=== PATIENT | female | born 1995 | race Caucasian/White ===

== ENCOUNTER → 2019-08-06 | Outpatient (CLI) | payer MEDICAID, SELFPAY ==
[2019-08-06 13:40] VITALS: BMI 20.6
[2019-08-06 18:21] LABS: Amphetamine Urine VISTA NEGATIVE (<1000 ng/mL); Barbiturate Urine VISTA NEGATIVE (< 200 ng/mL); Benzodiazepine Urine VISTA NEGATIVE (< 200 ng/mL); Cocaine Urine VISTA NEGATIVE (< 300 ng/mL); Ecstacy Urine VISTA NEGATIVE (< 500 ng/mL); Methadone Urine VISTA NEGATIVE (< 300 ng/mL); PCP Urine VISTA NEGATIVE (< 25 ng/mL); THC Urine VISTA POSITIVE (< 50 ng/mL); Vista UDS pH Range 6
[2019-08-06 20:36] LABS: Chlamydia Trachomatis by PCR Negative (Negative); Neisserai gonorrhoeae by PCR Negative (Negative); Probe Check PASS; Sample Adequacy Control PASS; Specimen Processing Control PASS
[2019-08-09 09:37] LABS: HPV Reflexed? NOT INDICATED
== END | disposition home or self-care (01) ==
PROVIDERS: PCP Family Medicine; Referring Provider Obstetrics & Gynecology; Visit Provider Obstetrics & Gynecology
DX: Z34.90 Encounter for supervision of normal pregnancy, unspecified, unspecified trimester (principal); Z12.4 Encounter for screening for malignant neoplasm of cervix
CPT/HCPCS: 80307; 87086; 87088; 87491; 87591; 88175; G0145

== ENCOUNTER → 2019-09-16 09:13 | Outpatient (CLI) | payer MEDICAID, SELFPAY ==
[2019-08-06 13:40] VITALS: BMI 20.6
[2019-09-16 09:44] LABS: Absolute Lymphocyte Count 1.86 X10^3/uL (0.83-4.51); Absolute Neutrophil Count 3.2 X10^3/uL (2.0-7.7); Basophil# 0.02 X10^3/uL; Basophil% 0.3 % (0-1); Eosinophil# 0.12 X10^3/uL; Eosinophils% 2.1 % (0-5); Hematocrit 38.4 % (37-47); Hemoglobin 12.9 g/dL (12.0-15.0); Lymphocyte # 1.86 X10^3/ul (4.0); Lymphocyte % 32.1 % (19-41); Mean Corp Hgb Conc 33.6 g/dL (32-36); Mean Corpuscular Hgb 30.2 pg (27.0-32.0); Mean Corpuscular Volume 89.9 fL (81-99); Monocyte% 10.4 % (0-10); NRBC Flagged by Analyzer 0 % (0-5); Neutrophil # 3.18 X10^3/uL (2.7-7.7); Neutrophil % 54.9 % (47-70); Platelet Count 296 K/mm3 (150-450); RBC Distribution Width CV 12.7 % (11.6-14.6); RBC Distribution Width SD 42.1 fl (35.1-43.9); Red Blood Count 4.27 M/mm3 (4.2-5.4); White Blood Count 5.8 K/mm3 (4.4-11.0)
[2019-09-16 10:28] LABS: NATERA MAILED SPECIMEN
[2019-09-16 11:40] LABS: HIV - WCH Non-Reactive (Nonreactive); Hepatitis B Surface Antigen Non-Reactive (Nonreactive); Hepatitis C Antibody Non-Reactive (Nonreactive); Rubella IgG 248.2 IU/mL
[2019-09-19 00:55] LABS: Rapid Plasmin Reagin (RPR) NONREACTIVE (NONREACTIVE)
== END ==
PROVIDERS: PCP Family Medicine; Referring Provider Obstetrics & Gynecology; Visit Provider Obstetrics & Gynecology
DX: Z34.90 Encounter for supervision of normal pregnancy, unspecified, unspecified trimester (principal)
CPT/HCPCS: 36415; 85025; 86592; 86703; 86762; 86803; 86850; 86900; 86901; 87340

== ENCOUNTER → 2019-10-16 09:40 | Outpatient (CLI) | payer MEDICAID, SELFPAY ==
[2019-10-16 09:11] VITALS: BMI 20.6
[2019-10-16 16:18] LABS: Amphetamine Urine VISTA NEGATIVE (<1000 ng/mL); Barbiturate Urine VISTA NEGATIVE (< 200 ng/mL); Benzodiazepine Urine VISTA NEGATIVE (< 200 ng/mL); Cocaine Urine VISTA NEGATIVE (< 300 ng/mL); Ecstacy Urine VISTA NEGATIVE (< 500 ng/mL); Methadone Urine VISTA NEGATIVE (< 300 ng/mL); PCP Urine VISTA NEGATIVE (< 25 ng/mL); THC Urine VISTA POSITIVE (< 50 ng/mL); Vista UDS pH Range 8
== END ==
PROVIDERS: PCP Family Medicine; Referring Provider Obstetrics & Gynecology; Visit Provider Obstetrics & Gynecology
DX: Z36.9 Encounter for antenatal screening, unspecified (principal); F12.90 Cannabis use, unspecified, uncomplicated
CPT/HCPCS: 36415; 80307

== ENCOUNTER → 2019-12-09 08:37 | Outpatient (CLI) | payer MEDICAID, SELFPAY ==
[2019-12-09 08:07] VITALS: BMI 20.6
[2019-12-09 09:11] LABS: Absolute Lymphocyte Count 2.01 X10^3/uL (0.83-4.51); Absolute Neutrophil Count 4.9 X10^3/uL (2.0-7.7); Basophil# 0.02 X10^3/uL; Basophil% 0.3 % (0-1); Eosinophil# 0.16 X10^3/uL; Hematocrit 35.8 % (37-47); Hemoglobin 12.1 g/dL (12.0-15.0); Lymphocyte # 2.01 X10^3/ul (4.0); Lymphocyte % 25.2 % (19-41); Mean Corp Hgb Conc 33.8 g/dL (32-36); Mean Corpuscular Hgb 31.4 pg (27.0-32.0); Mean Platelet Vol. 10.1 fl (6.2-12.0); Monocyte# 0.82 X10^3/uL; Monocyte% 10.3 % (0-10); NRBC Flagged by Analyzer 0 % (0-5); Neutrophil # 4.93 X10^3/uL (2.7-7.7); Neutrophil % 61.8 % (47-70); Platelet Count 257 K/mm3 (150-450); RBC Distribution Width CV 13.2 % (11.6-14.6); RBC Distribution Width SD 44.2 fl (35.1-43.9); Red Blood Count 3.85 M/mm3 (4.2-5.4)
[2019-12-09 09:17] LABS: Glucose Challenge Gest 1H 50g 83 mg/dL (70-140)
== END ==
PROVIDERS: PCP Family Medicine; Referring Provider Obstetrics & Gynecology; Visit Provider Obstetrics & Gynecology
DX: Z34.90 Encounter for supervision of normal pregnancy, unspecified, unspecified trimester (principal)
CPT/HCPCS: 36415; 82950; 85025

== ENCOUNTER → 2020-02-17 | Outpatient (CLI) | payer MEDICAID, SELFPAY ==
[2020-02-17 10:58] VITALS: BMI 24.5
[2020-02-17 16:15] LABS: Amphetamine Urine VISTA NEGATIVE (<1000 ng/mL); Barbiturate Urine VISTA NEGATIVE (< 200 ng/mL); Benzodiazepine Urine VISTA NEGATIVE (< 200 ng/mL); Cocaine Urine VISTA NEGATIVE (< 300 ng/mL); Ecstacy Urine VISTA NEGATIVE (< 500 ng/mL); Methadone Urine VISTA NEGATIVE (< 300 ng/mL); PCP Urine VISTA NEGATIVE (< 25 ng/mL); THC Urine VISTA POSITIVE (< 50 ng/mL); Vista UDS pH Range 7
== END | disposition home or self-care (01) ==
LOC: LABSPEC 14:26
PROVIDERS: PCP Family Medicine; Referring Provider Obstetrics & Gynecology; Visit Provider Obstetrics & Gynecology
DX: Z34.90 Encounter for supervision of normal pregnancy, unspecified, unspecified trimester (principal)
CPT/HCPCS: 80307; 87077; 87081; 87186

== ENCOUNTER → 2020-03-02 10:16 | Outpatient (CLI) | payer MEDICAID, SELFPAY ==
[2020-01-31 11:35] VITALS: BMI 24.0
[2020-02-28 14:33] VITALS: BMI 25.0
== END ==
PROVIDERS: PCP Family Medicine; Referring Provider Obstetrics & Gynecology; Visit Provider Obstetrics & Gynecology
DX: Z20.828 Contact with and (suspected) exposure to other viral communicable diseases (principal)
CPT/HCPCS: 87635; C9803; U0003

== ENCOUNTER 2020-03-03 12:25 | Outpatient (CLI) | payer MEDICAID, SELFPAY ==
[2020-02-28 14:33] VITALS: BMI 25.0
[2020-03-03 12:43] VITALS: BMI 25.0
--- NOTE | 2020-03-04 07:55 | OB.TRI.PN_ITS ---
Progress Notes Date of Service: 03/03/20 Progress Note: Patient presents for triage evaluation secondary to actions. Cervix found to be 1 cm and posterior. Contractions irregular. Patient not uncomfortable. FHT: Moderate variability reactive no decelerations category I tracing [place]: Every 10 minutes contractions Assessment and plan: Reactive NST, reassuring maternal and status patient discharged to home to follow-up at next scheduled appointment. See problem list details for additional plan information. - Problem List (1) False labor Status: Acute Multi Select Codes - Urinary/Genital Urinary/Genital CPT Codes: 65007-00 non-stress test Interp
== END 2020-03-03 13:25 | disposition home or self-care (01) ==
PROVIDERS: PCP Family Medicine; Referring Provider Obstetrics & Gynecology; Visit Provider Obstetrics & Gynecology
DX: O47.9 False labor, unspecified (principal); Z3A.00 Weeks of gestation of pregnancy not specified
CPT/HCPCS: 59025; 59050; 99218; G0378

== ENCOUNTER 2020-03-05 01:18 | Inpatient (IN) | payer MEDICAID, SELFPAY ==
[2020-03-05] VITALS (62 sets, daily range): BP systolic 83–148; BP diastolic 42–96; PULSE 80–137; RESP 16; TEMP 36.7–39.3; O2SAT 94–100; BMI 25.2
[2020-03-05 01:52] LABS: Absolute Lymphocyte Count 2.14 X10^3/uL (0.83-4.51); Absolute Neutrophil Count 10.1 X10^3/uL (2.0-7.7); Basophil# 0.05 X10^3/uL; Basophil% 0.4 % (0-1); Eosinophil# 0.08 X10^3/uL; Eosinophils% 0.6 % (0-5); Hematocrit 37.8 % (37-47); Hemoglobin 12.7 g/dL (12.0-15.0); Lymphocyte # 2.14 X10^3/ul (4.0); Lymphocyte % 15.7 % (19-41); Mean Corp Hgb Conc 33.6 g/dL (32-36); Mean Corpuscular Hgb 31.1 pg (27.0-32.0); Mean Corpuscular Volume 92.6 fL (81-99); Mean Platelet Vol. 10.5 fl (6.2-12.0); Monocyte# 1.15 X10^3/uL; Monocyte% 8.4 % (0-10); NRBC Flagged by Analyzer 0 % (0-5); Neutrophil # 10.13 X10^3/uL (2.7-7.7); Neutrophil % 74.4 % (47-70); Platelet Count 235 K/mm3 (150-450); RBC Distribution Width CV 13.1 % (11.6-14.6); RBC Distribution Width SD 44.1 fl (35.1-43.9); Red Blood Count 4.08 M/mm3 (4.2-5.4); White Blood Count 13.6 K/mm3 (4.4-11.0)
[2020-03-05] MEDS: Lactated Ringers 500 ML 999 ML IV ×3 (01:57→09:30)
[2020-03-05] MEDS: fentaNYL 100 MCG/2 ML Ampul IV (03:20)
[2020-03-05] MEDS: Lactated Ringers 1,000 ML 50 ML IV (03:29)
[2020-03-05 03:31] LABS: Amphetamine Urine VISTA NEGATIVE (<1000 ng/mL); Barbiturate Urine VISTA NEGATIVE (< 200 ng/mL); Benzodiazepine Urine VISTA NEGATIVE (< 200 ng/mL); Cocaine Urine VISTA NEGATIVE (< 300 ng/mL); Ecstacy Urine VISTA NEGATIVE (< 500 ng/mL); Methadone Urine VISTA NEGATIVE (< 300 ng/mL); PCP Urine VISTA NEGATIVE (< 25 ng/mL); THC Urine VISTA POSITIVE (< 50 ng/mL); Vista UDS pH Range 6
[2020-03-05] MEDS: fentaNYL-bupivacaine (epidural) 100 ML BAG EPIDURAL ×2 (06:14→11:32)
--- NOTE | 2020-03-05 07:11 | HP.PCM_ITS ---
- Problem List (1) Active labor Status: Acute (2) 35 weeks gestation of Status: Acute Comment: covid testing negative (3) Family history of cleft lip and palate Status: Acute Comment: FOB dtr with Cantrell Wells Syndrome. refer to [facility] for consult. (4) Influenza vaccine administered Status: Acute Comment: 01/17/2020 (5) Marijuana use Status: Acute Comment: encouraged cessation, plan random tox screen. 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 Nicolle Torres MD) Smoking Status: Current every day smoker alcohol intake: never substance use type: does not use, marijuana caffeine: Yes what type of physical activity do you participate in: walking seatbelt use: always do you feel safe at home: Yes additional social history: [id number]-[id number]-ENQ Patient is unemployed Pregancy History 2 Elective abortions Hx Para 0 Spontaneous abortions 1 Hx # Term Pregnancies Ectopic pregnancies Hx # Pregnancies Multiple births # of living children HPI 38 WK OB: Details: IRAM BETANCOURT is a 24 year old who presents for routine OB visit. OB Visit FELECIA Calculator Estimated Delivery Date Method Current WG Current Estimate 03/08/20 LMP (Certain) 38w 5d Expected Delivery Route/Plan Labor Preferences- CB/BF classes: declined labor support person: Walker labor intervention preferences: none pain management options preferred: epidural cut cord/dad catch: yes : yes PP control planned: patch start after 6 weeks discussed possible routes of delivery and associated risks: discussed possible delivery modalities and possible indications for each including R/B/A of , VAVD, and CS. questions answered. special requests: Specific Issue/Plans flu vaccine: given 01/16 tdap vaccine: given 12/08 rhogam: na LARC form signed: declined movement and labor precautions reviewed. Problem list reviewed and updated with the most current plan of care details and appropriate orders placed. Relevant counseling for the gestational age provided. Continue routine care and follow up unless otherwise noted in visit notes/problem list details Initial Weight: 133 lb Date EGA Weight BP Urine Prot Glucose FHR FuHt Pres Dilation Effaced St Visit Note 09/16/19 15w 1d 133 lb 6 oz (+6 oz) 110/68 Negative Negative 147 MH-nausea improved. No VB. PNL and NIPT today. 10/16/19 19w 3d 139 lb (+6 lb) 100/60 Negative Negative 145 SM- no vb lof cramping afp today, us tomorrow 11/13/19 23w 3d 139 lb (+6 lb) 98/54 Negative Negative 140 24 SM- no vb some cramping, gct given for next time. encouraged to have patient 12/09/19 27w 1d 143 lb (+10 lb) 118/62 Negative Negative 140 27 SM- no vb lof good fm no regular ctx. discussed work restrictions. cbc tdap gct today 01/02/20 30w 4d 102/62 140 30 SM- syncopal episode here- likely bs related, feeling much better now after fluids and eating. no vb lof good fm nor egular ctx 01/17/20 32w 5d 147 lb 6 oz (+14 lb 6 oz) 102/64 Negative Negative 150 32 Cephalic Sm- no vb lof good fm no regular ctx flu vaccine today larc signed discussed delivery preferences 01/31/20 34w 5d 149 lb (+16 lb) 104/60 Negative Negative 150 34 Cephalic SM- no vb lof good fm no regular ctx 02/17/20 37w 1d 152 lb (+19 lb) 116/68 145 36 Cephalic 0 40 -3 GP - no LOF, VB, DFM, ctx . GBS done today. Discussed COVID testing - scheduled for 02/27. 02/28/20 38w 5d 155 lb (+22 lb) 114/60 Negative Negative 125 38 Cephalic 1 50 -2 SM- no vb lof good fm nor egular ctx ACOG First Trimester First Trimester: Discussed Diagnostics Diagnostics Diagnostics Blood Type O POSITIVE 09/16/19 Antibody Screen NEGATIVE 09/16/19 Glucose 1 Hr 50 gm 83 mg/dL (70-140) 12/09/19 HIV 1&2 Antibody Non-Reactive (Nonreactive) 09/16/19 Rubella IgG Antibody 248.2 IU/mL 09/16/19 Hgb 12.1 g/dL (12.0-15.0) 12/09/19 Hct 35.8 % (37-47) L 12/09/19 RPR NONREACTIVE (NONREACTIVE) 09/16/19 Details: HIV: Urine Culture: Sequential Screen: NIPT Screen: ROS ROS Const Reports system reviewed and no additional complaints, except as documented Card Reports system reviewed and no additional complaints, except as documented Resp Reports system reviewed and no additional complaints, except as documented GI Reports system reviewed and no additional complaints, except as documented, Reports nausea Reports system reviewed and no additional complaints, except as documented Musc Reports system reviewed and no additional complaints, except as documented all other systems reviewed and negative Exam Exam Const General: cooperative, healthy appearing, comfortable [facility] Head: normal to inspection Nose: external nose normal Face and sinus: normal facial exam Neck Neck: normal visual inspection, full ROM, no lymphadenopathy Thyroid: thyroid normal Chest Chest palpation & inspection: normal inspection of the chest Resp Effort & Inspection: normal respiratory effort GI Inspection: normal to inspection Palpation: soft, other (gravid uterus) Other: infant vertex and appropriate size for gestational age Other: Cervical Exam: 70/-2 Extrem General: pedal edema Results POC Urinalysis 2 Dip (Clinic) Office Urine Glucose Negative Last Edit by Teresa Donovan on 02/28/20 14:40 Office Urine Protein Negative Last Edit by Teresa Donovan on 02/28/20 14:40 Assessment & Plan Problems 1. Z34.90 nipt- low risk and carrier- neg , afp negative, anatomy normal 2. Supervision of normal , antepartum Z34.90 PRR FELECIA 03/08/20 boy [place] fhchristian Cardoso (Jojo) 3. Family history of cleft lip and palate Z82.79 FOB dtr with Cantrell Wells Syndrome. refer to [facility] for consult. 4. Marijuana use F12.90 encouraged cessation, plan random tox screen. + 10/15- repeat in 6-8 weeks 5. Influenza vaccine administered Z23 01/17/2020 6. 35 weeks gestation of Z3A.35 covid testing ordered 02/05/20c (scheduled for 02/28/20 at 9:40)Pt no showed 02/27 appt. resched. 03/02 @9:05 7. Positive GBS test B95.1 plan PCN in labor UPDATE- I have seen the patient and performed any clinically relevant updates to the history and physical exam. Lotus Hogan MD
[2020-03-05] MEDS: Mag Hydrox/Al Hydrox/Simeth 30 ML UDC PO (07:32)
[2020-03-05] MEDS: Lactated Ringers 1,000 ML 200 ML IV (08:38)
[2020-03-05] MEDS: Ondansetron 4 MG/2 ML Vial IV (12:28)
[2020-03-05] MEDS: Oxytocin 30 units/NS 500 ml 30 UNITS/500 ML IV.SOLN 334 UNITS IV (13:34)
--- NOTE | 2020-03-05 16:04 | NURSING ---
Leanne Brito RN and I wasted the patient's epidural bags. We accidently wasted under an ampule of Fentanyl instead of an epidural bag in the amount of 2mcg. It was meant to be 2ml of the Fentanyl epidural bag. Deepa in pharmacy was notified.
--- NOTE | 2020-03-05 19:30 | PCM.OPRPT ---
Problem List (1) Active labor Status: Acute (2) 35 weeks gestation of Status: Acute Comment: covid testing negative (3) Family history of cleft lip and palate Status: Acute Comment: FOB dtr with Cantrell Wells Syndrome. refer to [facility] for consult. (4) Influenza vaccine administered Status: Acute Comment: 01/17/2020 (5) Marijuana use Status: Acute Comment: encouraged cessation, plan random tox screen. + 7/- repeat in 6-8 weeks (6) Positive GBS test Status: Acute Comment: plan PCN in labor (7) Status: Acute Qualifiers: Comment: nipt- low risk and carrier- neg , afp negative, anatomy normal (8) Supervision of normal , antepartum Status: Acute Comment: PRR FELECIA 03/08/20 ying Cardoso (Jojo) Vaginal Delivery Maternal Presentation: Active Labor 24 year-old G2, P0 at 39 weeks gestation admitted in active labor. Patient made cervical change to complete dilation without augmentation. Method of Induction: Amniotomy Amniotic Membrane Rupture Type: Artificial Rupture of Membrane time: 744 Amniotic Fluid Description: Lightly stained meconium Final FELECIA: 03/08/20 Gestational age: 39 Weeks and 4 Days Date of Procedure: 03/05/20 Pre-Operative Diagnosis: Term , active labor Post-Operative Diagnosis: Same Surgery/ Procedure Performed: Spontaneous Vaginal Delivery Type of Anesthesia: Epidural Description of Procedure: Patient began pushing and delivered the head in the LINDA presentation. The head was delivered atraumatically and no nuchal cord was noted. The anterior and posterior shoulders delivered without complication followed by the rest of the infant and the infant was placed on the maternal abdomen. Delayed cord clamping was employed for approximately 60 seconds. Cord was clamped and cut and gentle traction was applied to the cord and the placenta delivered spontaneously immediately following it was noted to be intact with three-vessel cord. The perineum and vagina were inspected and a first-degree perineal laceration was noted and repaired in the standard fashion using 3-0 Vicryl repeat suture. EBL was 150 cc. Patient and tolerated delivery well. Presentation: Vertex, LINDA Placental Delivery Description: Spontaneous Placenta Disposition: [facility] Cord Vessel Description: 3 Vessels Cord Entanglement: None Estimated Blood Loss: 150 cc A gender: Male (1 minute): 8 (5 minute): 9 Episiotomy Description: None Laceration: Midline, Perineal Extension/lac, 1st degree Medications given after delivery: IV Pitocin Complications: None Multi Select Codes - Urinary/Genital Urinary/Genital CPT Codes: 85128 Vaginal Delivery+ PP Care([facility])
--- NOTE | 2020-03-05 20:41 | NURSING ---
Infants temperature was taken at 2014, this nurse has trouble obtaining an axillary temperature and switched thermometers and it eventually read 96.6. This nurse then obtained a rectal thermometer which then read 95.3, was imediately placed skin to skin with mother and put under warm blankets, room temperature was turned up. This nurse will recheck temperature in 30 mins from original temp taken, All other vitals within normal limits and infant was not in any distress, Nursery nurse was notified
[2020-03-06] VITALS: BP 137/74; PULSE 100; RESP 16; TEMP 37.6
[2020-03-06 04:00] VITALS: BP 95/51; PULSE 84; RESP 16; TEMP 37
--- NOTE | 2020-03-06 05:58 | DCINST_ITS ---
Discharge Diet: No Restrictions Discharge Activity: Return to Normal Activity, May not drive while taking narcotic pain medications., May Shower May resume sexual activity in: 4-6 weeks Additional Activity Instructions:: Nothing in the vagina for 4-6 weeks. You may return to work/school in 6 weeks. Call your doctor if your incision/area has: Continuous Slow Oozing, Sudden Increased Bleeding, Increased Pain/ Swelling, Increased Redness, Foul Smelling Discharge Additional Instructions: If you experience any of the following, contact your healthcare provider. * Bleeding that soaks a pad every hour for 2 hours * Fever 100.4 or higher * Unrelieved incision or abdominal pain * Swelling, redness, discharge or bleeding from your incision or episiotomy site * Your incision begins to separate * Problems urinating (including inability to urinate or burning while urinating). * Visual changes * Severe headache * Flu-like symptoms * Pain or redness in one of both of your breasts * Pain, warmth, tenderness or swelling in your legs, especially the calf area * Frequent nausea and vomiting * Symptoms of depression or anxiety If you experience any of the following, call 911 or go to the nearest Emergency Room. * Chest pain * Problems breathing * Seizure activity * Partial or complete paralysis of a body part, slurred speech, weakness or drooping of the face, or a sudden inability to walk or hold your balance Allergies/Adverse Reactions: Allergies No Known Allergies Allergy (Verified 02/28/20 14:34) Medications to take at Discharge Pnv No.95/Ferrous Fum/Folic AC [ Formula Tablet] 1 tab PO DAILY 03/05/20 When: Call to make an appointment with your doctor in 6 weeks. If you had elevated Blood Pressure or 4th degree laceration you will need to be seen in 2 weeks. Primary Care Physician: Carrington Brito MD [Primary Care Provider] - Test Results: Test results from this visit will be discussed in further detail at your follow- up appointment, if applicable.
--- NOTE | 2020-03-06 06:00 | PN.OBGYN_ITS ---
Patient Problems: Active and Suspected Problems (Last Reviewed 02/28/20 @ 14:34 by Teresa Donovan) Active labor (Acute) Positive GBS test (Acute) plan PCN in labor 35 weeks gestation of (Acute) covid testing negative Influenza vaccine administered (Acute) 01/17/2020 Marijuana use (Acute) encouraged cessation, plan random tox screen. + 7/- repeat in 6-8 weeks Family history of cleft lip and palate (Acute) FOB dtr with Cantrell Wells Syndrome. refer to [facility] for consult. Supervision of normal , antepartum (Acute) PRR FELECIA 03/08/20 boy [place] fhusband Walker (Jojo) (Acute) nipt- low risk and carrier- neg , afp negative, anatomy normal Subjective: Patient doing well without complaints. Tolerating PO. Ambulating and voiding without difficulty. Breast feeding well. Denies chest pain, shortness of breath, calf pain/swelling, fevers, chills, lightheadedness. - Physical Exam Vitals/I&O's: Vital Signs Temp Pulse Resp BP Pulse Ox 98.6 F 84 16 95/51 L 100 03/06/20 04:00 03/06/20 04:00 03/06/20 04:00 03/06/20 04:00 03/05/20 13:47 Oxygen Delivery Method Room Air Weight: 156 lb Body Mass Index (BMI) 25.2 Intake and Output for Last 24 Hours 03/04/20 03/05/20 03/06/20 23:59 23:59 23:59 Intake Total 4069.16 / 4069.16 Output Total 350 / 350 Balance 3719.16 / 3719.16 General: Alert, Oriented x3, Cooperative, No apparent distress, Well developed, Well nourished HEENT: Atraumatic, PERRLA, EOMI, Normocephalic Neck: Supple, No JVD Lungs: Normal air movement Cardiovascular: Regular rate Abdomen: Soft, Non Tender, Non-Distended, - - fundus firm Extremities: No edema, No Calf Tenderness Neurological: Cranial nerves II-XII grossly intact, Neuro grossly intact Psych/Mental Status: Normal Affect, Appropriate Current Medications Acetaminophen (Acetaminophen 500 Mg Tablet) 1,000 mg PO Q8H PRN PRN PRN Reason: Pain Score 1-3 Bisacodyl (Bisacodyl 10 Mg Suppository) 10 mg RECTAL UD PRN PRN Reason: If no BM Dibucaine (Dibucaine 30 Gm Tube) 1 applic TOPICAL TID PRN PRN; Protocol PRN Reason: Discomfort Hydrocortisone (Hydrocortisone 2.5% Crm) 1 applic TOPICAL TID PRN PRN; Protocol PRN Reason: Discomfort Ibuprofen (Ibuprofen 600 Mg Tablet) 600 mg PO Q6H PRN PRN PRN Reason: Pain Score 1-3 Methylergonovine Maleate (Methylergonovine 0.2 Mg/Ml Ampul) 0.2 mg IM X1 PRN PRN Reason: Excess bleeding/uterine atony Ondansetron HCl (Ondansetron 4 Mg/2 Ml Vial) 4 mg IV Q4H PRN PRN PRN Reason: Nausea Oxycodone HCl (Oxycodone 5 Mg Tablet) 5 - 10 mg PO Q4H PRN PRN PRN Reason: Pain Score 4-10 Senna/Docusate Sodium (Senna/Docusate Sodium 1 Tablet) 1 - 2 tablet PO DAILY PRN PRN PRN Reason: Constipation Simethicone (Simethicone 80 Mg Tablet) 80 mg PO PCHS PRN PRN Reason: Indigestion/Stomach pain Sodium Chloride (0.9% Saline Lock 10 Ml Syringe) 5 - 15 ml IV UD PRN PRN Reason: SALINE FLUSH Medical Necessity - Tobacco Use Smoking Status: Current every day smoker Assessment/Plan All Active Problems (Last Reviewed 02/28/20 @ 14:34 by Teresa Donovan) Active labor (Acute) False labor (Acute) Positive GBS test (Acute) 35 weeks gestation of (Acute) Influenza vaccine administered (Acute) Marijuana use (Acute) Family history of cleft lip and palate (Acute) Supervision of normal , antepartum (Acute) (Acute) Tobacco dependence in remission (Resolved) s/p PPD # 1 1. routine post delivery care 2. breast feeding- support given 3. rh positive 4. rubella immune
[2020-03-06 08:00] VITALS: BP 94/51; PULSE 75; RESP 16; TEMP 36.7; O2SAT 99
[2020-03-06 11:44] VITALS: BP 99/52; PULSE 77; RESP 16; TEMP 36.6
--- NOTE | 2020-03-06 13:16 | CASEMGMT ---
Social Work Referral: positive THC screen upon admission for delivery. Baby's urine is negative. Visit: Met with MOB. FOB present. Introduced self and role. MOB and FOB live together, are engaged ,this is their first child together, but FOB second child (from another relationship). 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 Pt plans to take at least 12 weeks. 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 FOB is able to take about 2 weeks off from work to assist with the baby. MOB reports to having a good support system, family and friends to assist whenever needed. No transportation issues, financial issues, but had used food stamps at the beginning of COVID-19 pandemic as MOB job hours were impacted. Pt reports having all supplies needed for baby, a safe sleep space. Pt plans to breastfeed but is open to bottle feeding as the baby gets older. Pt has no hx of mental health issues but trusts PCP to seek help. Reports good communication between MOB and FOB. Discussed PPD/A. Provided resources for a variety of support agencies in [facility], safe sleep, PPD/A, shaken baby, WIC, [facility], counseling. Inquired about drug use. MOB reported to using marijuana throughout , FOB uses as well. MOB denies any other drug use. Inquired about frequency - FOB and MOB both talking over one another and having trouble getting a straight answer, but MOB finally reported to using 2x week. BLANE explained pt was positive upon admission, baby negative, and does require a CPS referral. MOB and FOB both appeared unsettled. SW explained further that CPS will decide if the case will be opened/investigated, pt can still be discharged but CPS would be contacting MOB via phone and asking further questions. SW discussed stopping use, especially if or pumping, risks of that, and if she were to continue to use, to use safely and not around baby. MOB did not report if she would be stopping usage, but expressed understanding and open to call from CPS. Offered to answer any other questions. MOB and FOB both had no further questions/comments/concerns. Denied SW to make referrals to any resources or agencies. CPS referral made to Nataly at [facility]. Advised [facility] will be contacting CPS with baby's meconium results. Provided SW contact information if further questions arise. Nataly unsure if case will be opened since there are no concerns for baby well-being or MOB being unfit to parent. [address], HUMBERTO FOSTERW
--- NOTE | 2020-03-06 15:30 | CASEMGMT ---
Social Work Continued to converse with Nataly at [facility] multiple times throughout the afternoon answering further questions and providing information. Updated her that MOB has had several positive THC drug screens throughout - provided dates of positive screens per chart. HUMBERTO KoW
== END 2020-03-06 17:00 | disposition home or self-care (01) | DRG 560 ==
LOC: WPOUT 01:18 → WP 01:18
PROVIDERS: Admitting Provider Obstetrics & Gynecology; PCP Family Medicine; Referring Provider Obstetrics & Gynecology; Visit Provider Obstetrics & Gynecology
DX: O77.0 Labor and delivery complicated by meconium in amniotic fluid (principal); O99.824 Streptococcus B carrier state complicating childbirth; O70.0 First degree perineal laceration during delivery; O99.324 Drug use complicating childbirth; F12.90 Cannabis use, unspecified, uncomplicated; O99.334 Smoking (tobacco) complicating childbirth; F17.201 Nicotine dependence, unspecified, in remission; Z3A.39 39 weeks gestation of pregnancy; Z37.0 Single live birth; Z20.828 Contact with and (suspected) exposure to other viral communicable diseases
CPT/HCPCS: 59025; 59050; 80307; 85025; 86850; 86900; 86901; 87635; 99218; C9803; J7120; G0378; J2405; U0003

== ENCOUNTER 2021-07-26 14:43 | Outpatient (CLI) | payer MEDICAID, SELFPAY ==
--- NOTE | 2021-07-26 15:04 | US_ITS ---
STUDY: SECOND AND THIRD TRIMESTER OBSTETRICAL ULTRASOUND - LIMITED REASON FOR EXAM: Female, 25 years old growth/dating -- LMP unknown positive home preg test LMP: Unknown. PRIOR ULTRASOUND: None. TECHNIQUE: Transabdominal TECHNICAL QUALITY: Adequate. FINDINGS: There is a single intrauterine fetus. The fetus is in a cephalic presentation. There is demonstrated cardiac activity with a heart rate of 152 bpm. There is a normal amniotic fluid volume. The placenta is fundal in location. There are Grade 0 placental changes. The cervix measures 3.6 cm in length. BIOMETRY: BPD: 5.1 cm: 21 weeks, 3 days HC: 19.6 cm: 21 weeks, 5 days AC: 17.2 cm: 22 weeks, 0 days FL: 3.6 cm: 21 weeks, 2 days age by current US: 21 weeks, 5 days. FELECIA by current US: 12/01/2021. Estimated weight: 452 grams, +/- 68 grams US/OB Limited With Biometrics IMPRESSION: Single live IUP at current gestational age of 21 weeks 5 days with estimated date of delivery 12/01/2021. Estimated weight of 452 g Electronically Signed: eBnnie Baptiste DO at 23:25 EDT ,
== END 2021-07-26 23:59 | disposition home or self-care (01) ==
LOC: US 14:44
PROVIDERS: PCP Family Medicine; Visit Provider Nurse Practitioner Women's Health
DX: Z34.92 Encounter for supervision of normal pregnancy, unspecified, second trimester (principal); Z3A.21 21 weeks gestation of pregnancy
CPT/HCPCS: 76816

== ENCOUNTER → 2021-08-04 | Outpatient (CLI) | payer MEDICAID, SELFPAY ==
[2021-08-03 13:37] LABS: Amphetamine Urine VISTA NEGATIVE (<1000 ng/mL); Barbiturate Urine VISTA NEGATIVE (< 200 ng/mL); Benzodiazepine Urine VISTA NEGATIVE (< 200 ng/mL); Cocaine Urine VISTA NEGATIVE (< 300 ng/mL); Ecstacy Urine VISTA NEGATIVE (< 500 ng/mL); Methadone Urine VISTA NEGATIVE (< 300 ng/mL); PCP Urine VISTA NEGATIVE (< 25 ng/mL); THC Urine VISTA NEGATIVE (< 50 ng/mL); Vista UDS pH Range 6
== END | disposition home or self-care (01) ==
LOC: LABSPEC 07:30
PROVIDERS: PCP Family Medicine; Referring Provider Obstetrics & Gynecology; Visit Provider Obstetrics & Gynecology
DX: Z34.90 Encounter for supervision of normal pregnancy, unspecified, unspecified trimester (principal)
CPT/HCPCS: 80307; 87086; 87088

== ENCOUNTER → 2021-09-07 | Outpatient (CLI) | payer MEDICAID, SELFPAY ==
--- NOTE | 2021-09-07 14:18 | US_ITS ---
STUDY: SECOND AND THIRD TRIMESTER OBSTETRICAL ULTRASOUND - LIMITED REASON FOR EXAM: Female, 25 years old. anatomy PRIOR ULTRASOUND: Jul 26 2021 3:11pm . TECHNIQUE: Transabdominal TECHNICAL QUALITY: Adequate. FINDINGS: There is a single intrauterine fetus. The fetus is in a cephalic presentation. There is demonstrated cardiac activity with a heart rate of 144 bpm. There is a normal amniotic fluid volume. The largest amniotic fluid pocket measures 3.6 cm. The amniotic fluid index (BLUE) is 11.9 cm. The placenta is fundal in location. There are Grade 1 placental changes. The cervix measures cm in length: 4.5. BIOMETRY: BPD: 72 mm: 28 weeks, 5 days HC: 263 mm: 28 weeks, 4 days AC: 234 mm: 27 weeks, 4 days FL: 53 mm: 27 weeks, 6 days CI: 79 FL/AC: 22 FL/BPD: 73 HC/AC: 1.13 age by current US: 28 weeks, 0 days. FELECIA by current US: 8.16.22. Estimated weight: 1159 grams, +/- 174 grams, 43 %. age by prior US: 27 weeks, 6 days. FELECIA by prior US: 8.17.22. Age by LMP: 27 weeks, 6 days. FELECIA by LMP: 8.17.22. ANATOMY: Gender: Female Cranium: Normal lateral ventricles. Normal choroid plexus. Normal cerebellum. Normal cisterna magna. Normal face, nose and lips. Chest: Normal 4-chamber heart. Abdomen/Pelvis: Normal diaphragm. Normal stomach. Normal abdominal wall. Normal cord insertion. Normal 3 vessel cord. Normal kidneys. Normal bladder. Spine: Normal cervical spine. Normal thoracic spine. Normal lumbar spine. Normal sacrum. Extremities: Normal bilateral upper extremities. Normal bilateral lower extremities. IMPRESSION: There is a single live intrauterine with a heart rate of 144 bpm. age by current US: 28 weeks, 0 days. FELECIA by current US: 8.16.22. Estimated weight: 1159 grams, +/- 174 grams, 43 %. Electronically Signed: Adarsh Mosqueda MD at 16:56 EDT Reading Location ID and State: [facility] / [place] , Service support , STUDY: SECOND AND THIRD TRIMESTER OBSTETRICAL ULTRASOUND - LIMITED REASON FOR EXAM: Female, 25 years old. anatomy PRIOR ULTRASOUND: Jul 26 2021 3:11pm . TECHNIQUE: Transvaginal TECHNICAL QUALITY: Adequate. FINDINGS: There is a single intrauterine fetus. The fetus is in a cephalic presentation. There is demonstrated cardiac activity with a heart rate of 144 bpm. There is a normal amniotic fluid volume. The largest amniotic fluid pocket measures 3.6 cm. The amniotic fluid index (BLUE) is 11.9 cm. The placenta is fundal in location. There are Grade 1 placental changes. The cervix measures cm in length: 4.5. BIOMETRY: BPD: 72 mm: 28 weeks, 5 days HC: 263 mm: 28 weeks, 4 days AC: 234 mm: 27 weeks, 4 days FL: 53 mm: 27 weeks, 6 days CI: 79 FL/AC: 22 FL/BPD: 73 HC/AC: 1.13 age by current US: 28 weeks, 0 days. FELECIA by current US: 8.16.22. Estimated weight: 1159 grams, +/- 174 grams, 43 %. age by prior US: 27 weeks, 6 days. FELECIA by prior US: 8.17.22. Age by LMP: 27 weeks, 6 days. FELECIA by LMP: 8.17.22. ANATOMY: Gender: Female Cranium: Normal lateral ventricles. Normal choroid plexus. Normal cerebellum. Normal cisterna magna. Normal face, nose and lips. Chest: Normal 4-chamber heart. Abdomen/Pelvis: Normal diaphragm. Normal stomach. Normal abdominal wall. Normal cord insertion. Normal 3 vessel cord. Normal kidneys. Normal bladder. Spine: Normal cervical spine. Normal thoracic spine. Normal lumbar spine. Normal sacrum. Extremities: Normal bilateral upper extremities. Normal bilateral lower extremities. US/OB Anatomy Scan IMPRESSION: There is a single live intrauterine with a heart rate of 144 bpm. age by current US: 28 weeks, 0 days. FELECIA by current US: 8.16.22. Estimated weight: 1159 grams, +/- 174 grams, 43 %. Electronically Signed: Adarsh Mosqueda MD at 16:56 EDT ,
== END | disposition home or self-care (01) ==
LOC: OPUS 14:16
PROVIDERS: PCP Family Medicine; Visit Provider Obstetrics & Gynecology
DX: Z34.90 Encounter for supervision of normal pregnancy, unspecified, unspecified trimester (principal)
CPT/HCPCS: 76805; 76817

== ENCOUNTER → 2021-11-01 | Outpatient (CLI) | payer MEDICAID, SELFPAY ==
[2021-11-01 14:54] LABS: Absolute Lymphocyte Count 2.14 X10^3/uL (0.83-4.51); Absolute Neutrophil Count 6.2 X10^3/uL (2.0-7.7); Basophil# 0.04 X10^3/uL; Basophil% 0.4 % (0-1); Eosinophil# 0.31 X10^3/uL; Eosinophils% 3.2 % (0-5); Hemoglobin 11.9 g/dL (12.0-15.0); Lymphocyte # 2.14 X10^3/ul (0.83-4.51); Lymphocyte % 21.9 % (19-41); Mean Corpuscular Hgb 30.1 pg (27.0-32.0); Mean Corpuscular Volume 88.6 fL (81-99); Mean Platelet Vol. 10.6 fl (6.2-12.0); Monocyte# 1.03 X10^3/uL; Monocyte% 10.5 % (0-10); NRBC Flagged by Analyzer 0 % (0-5); Neutrophil # 6.24 X10^3/uL (2.7-7.7); Neutrophil % 63.7 % (47-70); Platelet Count 254 K/mm3 (150-450); RBC Distribution Width CV 13.1 % (11.6-14.6); RBC Distribution Width SD 42.6 fl (35.1-43.9); Red Blood Count 3.95 M/mm3 (4.2-5.4); White Blood Count 9.8 K/mm3 (4.4-11.0)
[2021-11-01 15:24] LABS: Hemoglobin A1c 5.4 % (3.8-5.6)
[2021-11-01 16:11] LABS: Amphetamine Urine VISTA NEGATIVE (<1000 ng/mL); Barbiturate Urine VISTA NEGATIVE (< 200 ng/mL); Benzodiazepine Urine VISTA NEGATIVE (< 200 ng/mL); Cocaine Urine VISTA NEGATIVE (< 300 ng/mL); Ecstacy Urine VISTA NEGATIVE (< 500 ng/mL); Methadone Urine VISTA NEGATIVE (< 300 ng/mL); PCP Urine VISTA NEGATIVE (< 25 ng/mL); THC Urine VISTA NEGATIVE (< 50 ng/mL); Vista UDS pH Range 7
[2021-11-02 09:07] LABS: HIV - WCH Non-Reactive (Nonreactive); Hepatitis B Surface Antigen Non-Reactive (Nonreactive); Rubella IgG Reactive (Nonreactive); Syphilis Antibodies Non-reactive
[2021-11-02 09:51] LABS: Hepatitis C Antibody Nonreactive (Nonreactive)
== END | disposition home or self-care (01) ==
LOC: PAVLAB 14:31
PROVIDERS: Obstetrics & Gynecology; Referring Provider Obstetrics & Gynecology; Visit Provider Obstetrics & Gynecology
DX: Z34.90 Encounter for supervision of normal pregnancy, unspecified, unspecified trimester (principal); Z13.1 Encounter for screening for diabetes mellitus
CPT/HCPCS: 36415; 80307; 83036; 85025; 86703; 86762; 86780; 86803; 86850; 86900; 86901; 87081; 87340

== ENCOUNTER → 2021-11-12 | Outpatient (CLI) | payer MEDICAID, SELFPAY ==
--- NOTE | 2021-11-12 15:16 | US_ITS ---
STUDY: SECOND AND THIRD TRIMESTER OBSTETRICAL ULTRASOUND - LIMITED REASON FOR EXAM: Female, 26 years old. Growth. Limited care. History of tobacco use during . LMP: Unknown. PRIOR ULTRASOUND: 07/26/2021. In 09/07/2021. TECHNIQUE: Transabdominal TECHNICAL QUALITY: Study is limited due to the patient holding a screaming kicking 1-year-old child throughout the exam. FINDINGS: There is a single intrauterine fetus. The fetus is in a cephalic presentation. There is demonstrated cardiac activity with a heart rate of 132 bpm. There is a normal amniotic fluid volume. The largest amniotic fluid pocket measures 6.17 cm. The amniotic fluid index (BLUE) is 16.4 cm. The placenta is fundal in location. There are Grade 1 placental changes. The cervix measures 3.13 cm in length. BIOMETRY: BPD: 8.64 cm: 34 weeks, 6 days HC: 31.93 cm: 35 weeks, 6 days AC: 31.61 cm: 35 weeks, 3 days FL: 6.95 cm: 35 weeks, 4 days age by initial US: 37 weeks, 2 days. FELECIA by initial US: 12/01/2021.. age by current US: 35 weeks, 4 days. FELECIA by current US: 12/13/2021. Estimated weight: 2715 grams, +/- 407 grams, 18 percentile. Gender: Indeterminant US/OB Limited With Biometrics IMPRESSION: 1. Single live intrauterine at 35 weeks, 4 days. FELECIA is 12/13/2021. This is approximately 2 weeks behind expected gestational age by initial ultrasound. 2. EFW of 2715 g. This is at the 18th percentile. 3. BLUE of 16.48 cm. 4. Fundal grade 1 placenta. 5. VERTEX presentation. Electronically Signed: Nick Richey DO at 22:19 EDT Reading Location ID and State: [address] [place] [address] Tel [phone], Service support ,
== END | disposition home or self-care (01) ==
LOC: US 15:15
PROVIDERS: Referring Provider Obstetrics & Gynecology; Visit Provider Obstetrics & Gynecology
DX: O09.33 Supervision of pregnancy with insufficient antenatal care, third trimester (principal); O99.333 Smoking (tobacco) complicating pregnancy, third trimester; Z3A.35 35 weeks gestation of pregnancy
CPT/HCPCS: 76816

== ENCOUNTER 2021-11-17 01:20 | Inpatient (IN) | payer MEDICAID, SELFPAY ==
[2021-11-16 23:00] VITALS: BMI 24.1
[2021-11-16 23:17] VITALS: PULSE 84; O2SAT 97
[2021-11-16 23:19] VITALS: PULSE 81; O2SAT 94
[2021-11-16 23:21] VITALS: BP 107/56; PULSE 82; TEMP 36.8
[2021-11-16 23:27] VITALS: TEMP 36.8
[2021-11-16 23:45] LABS: Mucous, Urine 0 SEEN /hpf (<or=2+); Red Blood Cells-Urine 0 SEEN /hpf (0-5)
[2021-11-16 23:50] LABS: Color, Urine Yellow (Yellow); Glucose, Dipstick Normal (Normal); Ketone-Dipstick Negative (Negative); Leukocyte Esterase-Dipstick 25 /ul (Negative); Nitrite-Dipstick Negative (Negative); Occult Blood-Urine Negative /ul (Negative); Protein-Dipstick Negative (Negative); Specific Gravity, Urine 1.005 (1.002-1.030); Urine Bilirubin Dipstick Negative (Negative); Urine Clarity Clear (Clear); Urine Urobilinogen Normal (Normal)
[2021-11-16 23:57] LABS: Bacteria 2+ /hpf (None Seen); Squamous Epithelial Cells - UA 0-5 SEEN /hpf (5-10); White Blood Cells 0-5 SEEN /hpf (0-5)
[2021-11-17] VITALS (43 sets, daily range): BP systolic 92–123; BP diastolic 48–75; PULSE 65–93; RESP 16–18; TEMP 36.3–37.6; O2SAT 93–99
[2021-11-17 00:09] LABS: Amphetamine Urine VISTA NEGATIVE (<1000 ng/mL); Barbiturate Urine VISTA NEGATIVE (< 200 ng/mL); Benzodiazepine Urine VISTA NEGATIVE (< 200 ng/mL); Cocaine Urine VISTA NEGATIVE (< 300 ng/mL); Ecstacy Urine VISTA NEGATIVE (< 500 ng/mL); Methadone Urine VISTA NEGATIVE (< 300 ng/mL); PCP Urine VISTA NEGATIVE (< 25 ng/mL); THC Urine VISTA NEGATIVE (< 50 ng/mL); Vista UDS pH Range 6
[2021-11-17 00:11] LABS: ROM Internal Control Test YES-OK TO RESULT pt. (Internal QC); ROM Patient Test Negative (Negative)
[2021-11-17] MEDS: LACTATED RINGERS 500 ML 999 ML IV ×2 (01:56→03:44)
[2021-11-17 02:05] LABS: Absolute Lymphocyte Count 2.78 X10^3/uL (0.83-4.51); Basophil# 0.03 X10^3/uL; Basophil% 0.2 % (0-1); Eosinophil# 0.24 X10^3/uL; Hematocrit 34.6 % (37-47); Hemoglobin 11.8 g/dL (12.0-15.0); Lymphocyte # 2.78 X10^3/ul (0.83-4.51); Mean Corp Hgb Conc 34.1 g/dL (32-36); Mean Corpuscular Hgb 30.5 pg (27.0-32.0); Mean Corpuscular Volume 89.4 fL (81-99); Mean Platelet Vol. 10.8 fl (6.2-12.0); Monocyte# 0.99 X10^3/uL; Monocyte% 8.2 % (0-10); NRBC Flagged by Analyzer 0 % (0-5); Neutrophil # 8.01 X10^3/uL (2.7-7.7); Neutrophil % 66.1 % (47-70); Platelet Count 227 K/mm3 (150-450); RBC Distribution Width CV 13.2 % (11.6-14.6); RBC Distribution Width SD 42.6 fl (35.1-43.9); Red Blood Count 3.87 M/mm3 (4.2-5.4); White Blood Count 12.1 K/mm3 (4.4-11.0)
--- NOTE | 2021-11-17 02:18 | OB.TRI.HP_ITS ---
HPI - General General Date of Admission: 11/17/21 HPI Narrative IRAM BETANCOURT, is a 26 F who presents Maternal Data Information FELECIA Calculator Estimated Delivery Date Method Current WG Current Estimate 12/01/21 Ultrasound #1 38w 0d PFSH PFSH Medical History Marijuana use Home Medications vit no.95-ferrous fumarate 28 mg-folic acid 800 mcg tablet 1 tab PO DAILY 03/05/20 [History Last Taken 03/04/20] Allergy/AdvReac Type Severity Reaction Status Date / Time No Known Allergies Allergy Verified 11/16/21 23:21 Social History Smoking Status: Heavy Smoker (>10/day) alcohol intake: never substance use type: does not use caffeine: Yes what type of physical activity do you participate in: none seatbelt use: always do you feel safe at home: Yes additional social history: Lruidzy-[id number]-ZXH Patient is unemployed History 3 Elective abortions Hx Para 1 Spontaneous abortions 1 Hx # Term Pregnancies Ectopic pregnancies Hx # Pregnancies Multiple births # of living children 1 Past Pregnancies Del. Date Name GA/Weeks Outcome Route Bth Weight Gen Labor Lgth Anesthesia Del Locatn Provider FOB 03/05/20 Walker 39 live - full term Male epid ural [facility] CP Delivery Date: 03/05/20 Last Updated by: Teresa Donovan 1 degree laceration; lightly stained meconium Visit Details Expected Delivery Route/Plan Labor Preferences- CB/BF classes: [] labor support person: [] labor intervention preferences: [] pain management options preferred: [] cut cord/dad catch: [] : [] PP control planned: [] discussed possible routes of delivery and associated risks: [] special requests: [] Plans Covid status: discussed Flu vaccine: discussed Tdap vaccine: [] Rhogam: [] LARC form signed: [] Problem list reviewed and updated with the most current plan of care details and appropriate orders placed. Relevant counseling for the gestational age provided. Continue routine care and follow up unless otherwise noted in visit notes/problem list details OB Flowsheet Initial Weight: Not Recorded Date -?-?-?-?-?-?-?-?-?-?-?-?- EGA Weight BP Urine Prot -?-?-?-?-?-?-?-?-?-?-?-?- Glucose FHR FuHt Pres Dilation -?-?-?-?-?-?-?-?-?-?-?-?- Effaced St Visit Note 08/03/21 -?-?-?-?-?-?-?-?-?-?--?-?- 22w 6d 143 lb 4 oz 120/60 -?-?-?-?-?-?-?-?-?-?-?-?- 140 -?-?-?-?-?-?-?-?-?-?-?-?- JV- new ob at 22 weeks 6 days. ultrasound done at 21 weeks but needs anatomy scan 09/14/21 -?-?-?-?-?-?-?-?-?-?-?-?- 28w 6d 146 lb 6 oz 120/68 -?-?-?-?-?-?-?-?-?-?-?-?- 145 -?-?-?-?--?-?-?-?-?-?-?-?- JV- pt still nee ds new ob labs. She has some milk let down. we discussed this today. gct ordered. disussed tdap. she has her 18 month old with her and wants to hold off until next visit. 11/01/21 -?-?-?-?-?-?-?-?-?-?-?-?- 35w 5d 150 lb 4 oz 128/78 -?-?-?-?-?-?-?-?-?-?-?-?- 145 36 Cephalic -?-?-?-?-?-?-?-?-?-?-?-?- SM- no vb lof go od fm no reuglar ctx, states she hasn't made it to visits due to family issues. SM- no vb lof good fm no reu glar ctx, states she hasn't made it to visits due to family issues. she states she is safe at home. she declines using any drugs and decline social work interventions. 11/12/21 -?-?-?-?-?-?-?-?-?-?-?-?- 37w 2d 148 lb 4 oz 124/76 Nega tive -?-?-?-?-?-?-?-?-?-?-?-?- Negative 140 35 Cephalic -?-?-?-?-?-?-?-?-?-?-?-?- SM- no vb lof go od fm no regualr ctx low FH, SM- no vb lof good fm no reg ualr ctx low FH, discussed checking growth us and BLUE due to increased risk of complications if abnorml ROS Constitutional Constitutional: Reports systems reviewed and no addt'l complaints, except as documented Gastrointestinal Gastrointestinal: Denies bloating, constipation, cramping, diarrhea, nausea or vomiting Genitourinary Genitourinary: Reports other Details: Denies vaginal odor, vaginal bleeding, or vaginal discharge ; Denies difficulty urinating or flank pain Physical Exam HEENT normocephalic Resp normal respiratory effort and normal air movement no CVA tenderness OB / External & Speculum: other cerclage in place, light pink blood on q-tip (scant) no fluid present, no dilation visually. Manual OB Exam: other cx closed Amniotic Fluid: no amniotic fluid noted and ROM+plus negative - Extremity normal to inspection General Extremity: edema bilateral (trace ) NST FHR Rate Baby A Baseline: 140 Variability:: Moderate Accelerations:: 15 x 15 and 10 x 10 Decelerations:: None NST Reactive:: Yes FHR Category:: Category I Assessment & Plan (1) labor in second trimester: COMMENT: Transfer to [facility] 11/17/21 for labor without srom (2) Fundal height low for dates in third trimester: COMMENT: growth us ordered now, 11/12/21 measuring 35w4d, 18.2percentile,BLUE 16.48- pt heavy smoker. recommend delivery at 40 weeks and weekly nsts (3) Late care affecting in second trimester: COMMENT: had biometrics only on initial ultrasound at 21 weeks. nl anatomy and growth US (4) Smoking (tobacco) complicating , second trimester: (5) : QUALIFIERS: Weeks of gestation: 37 weeks Qualified Code(s): Z3A.37 - 37 weeks gestation of COMMENT: GBS neg. (6) Supervision of normal : COMMENT: FELECIA 12/01/21 SAMANTHA Horn: Walker (Jojo) (7) Family history of cleft lip and palate: COMMENT: FOB dtr with Cantrell Wells Syndrome. (8) Cervical cerclage suture present: PLAN: Plan labor- contractions spacing out with IV fluid bolus of 500cc. -indocin 50 mg now -start magnesium sulfate 6 gram bolus -discussed with Dr. Gunn and she has agreed to accept the transfer to [facility]. Charges/Coding Multi Select Codes Visit Charges Office Visit/Consults: 88136 OV L3 Est Urinary/Genital Urinary/Genital CPT Codes: 15406-80 non-stress test Interp
[2021-11-17] MEDS: Lactated Ringers 1,000 ML 50 ML IV (02:30)
--- NOTE | 2021-11-17 02:32 | HP.PCM.OB_ITS ---
HPI - General General Date of Admission: 11/17/21 HPI Narrative IRAM BETANCOURT, is a 26 y/o @ 38 weeks 0d who presents to L&D with contractions. She made cervical change from 2 cm to 4cm in one hour and how has bulging membranes and requesting epidural. Maternal Data Information FELECIA Calculator Estimated Delivery Date Method Current WG Current Estimate 12/01/21 Ultrasound #1 38w 0d PFSH PFSH Medical History Marijuana use Home Medications vit no.95-ferrous fumarate 28 mg-folic acid 800 mcg tablet 1 tab PO DAILY 03/05/20 [History Last Taken 03/04/20] Allergy/AdvReac Type Severity Reaction Status Date / Time No Known Allergies Allergy Verified 11/16/21 23:21 Social History Smoking Status: Heavy Smoker (>10/day) alcohol intake: never substance use type: does not use caffeine: Yes what type of physical activity do you participate in: none seatbelt use: always do you feel safe at home: Yes additional social history: Rswvasi-Dnppqov-UDK Patient is unemployed History 3 Elective abortions Hx Para 1 Spontaneous abortions 1 Hx # Term Pregnancies Ectopic pregnancies Hx # Pregnancies Multiple births # of living children 1 Past Pregnancies Del. Date Name GA/Weeks Outcome Route Bth [facility] Walker 39 live - full term Male epid ural [facility] CP Delivery Date: 03/05/20 Last Updated by: Teresa Donovan 1 degree laceration; lightly stained meconium Visit Details Expected Delivery Route/Plan Labor Preferences- CB/BF classes: [] labor support person: [] labor intervention preferences: [] pain management options preferred: [] cut cord/dad catch: [] : [] PP control planned: [] discussed possible routes of delivery and associated risks: [] special requests: [] Plans Covid status: discussed Flu vaccine: discussed Tdap vaccine: [] Rhogam: [] LARC form signed: [] Problem list reviewed and updated with the most current plan of care details and appropriate orders placed. Relevant counseling for the gestational age provided. Continue routine care and follow up unless otherwise noted in visit notes/problem list details OB Flowsheet Initial Weight: Not Recorded Date -?-?-?-?-?-?-?-?-?-?-?-?- EGA Weight BP Urine Prot -?-?-?-?-?-?-?-?-?-?-?-?- Glucose FHR FuHt Pres Dilation -?-?-?-?-?-?--?-?-?-?-?-?- Effaced St Visit Note 08/03/21 -?-?-?-?-?-?-?-?-?-?-?-?- 22w 6d 143 lb 4 oz 120/60 -?-?-?-?-?-?-?-?-?-?-?-?- 140 -?-?-?-?-?-?-?-?-?-?-?-?- JV- new ob at 22 weeks 6 days. ultrasound done at 21 weeks but needs anatomy scan 09/14/21 -?-?-?-?-?-?-?-?-?-?-?-?- 28w 6d 146 lb 6 oz 120/68 -?-?-?-?-?-?-?-?-?-?-?-?- 145 -?-?-?-?-?-?-?-?-?-?-?-?- JV- pt still nee ds new ob labs. She has some milk let down. we discussed this today. gct ordered. disussed tdap. she has her 18 month old with her and wants to hold off until next visit. 11/01/21 -?-?-?-?-?-?-?-?-?-?-?-?- 35w 5d 150 lb 4 oz 128/78 -?-?-?-?-?-?-?-?-?-?-?-?- 145 36 Cephalic -?-?-?-?-?-?-?-?-?-?-?-?- SM- no vb lof go od fm no reuglar ctx, states she hasn't made it to visits due to family issues. SM- no vb lof good fm no reu glar ctx, states she hasn't made it to visits due to family issues. she states she is safe at home. she declines using any drugs and decline social work interventions. 11/12/21 -?-?-?-?-?-?-?-?-?-?-?-?- 37w 2d 148 lb 4 oz 124/76 Nega tive -?-?-?-?-?-?-?-?-?-?-?-?- Negative 140 35 Cephalic -?-?-?-?-?-?-?-?-?-?-?-?- SM- no vb lof go od fm no regualr ctx low FH, SM- no vb lof good fm no reg ualr ctx low FH, discussed checking growth us and BLUE due to increased risk of complications if abnorml ROS Constitutional Constitutional: Denies change in weight, fatigue, fever(s), headache(s), poor appetite or weakness Eyes Eyes: Denies blurry vision, change in vision, seeing flashes or spots in vision ENT HEENT: Denies dizziness, headache(s), loss taste/smell or sore throat Cardiovascular Cardiovascular: Denies chest pain, dizziness, dyspnea, irregular heart rhythm, leg edema, palpitations, rapid heart rate or vomiting Respiratory/Chest Respiratory/Chest: Denies chest tightness, cough, dyspnea or breast pain Gastrointestinal Gastrointestinal: Denies abdominal pain, anorexia, constipation, cramping, diarrhea, hemorrhoids, vomiting or weight changes Genitourinary Genitourinary: Denies dysuria, flank pain, genital lesions, genital pain, uri nary frequency or urinary urgency Musculoskeletal Musculoskeletal: Denies back pain, difficulty walking, joint pain, limited range of motion, muscle cramps or numbness Integumentary Integumentary: Denies lesions or unusual bruising Neurologic Neurologic: Denies abnormal movements, abnormal speech, dizziness, numbness, seizure-like activity or syncope Psychiatric Psychiatric: Denies anxiety, behavioral changes, change in appetite, change in libido, cognitive impairment, confusion, depression, difficulty concentrating, hallucinations or suicidal thoughts Endocrine Endocrinology: Denies excessive sweating, polydipsia or polyuria Hematologic/Lymphatic Hematologic/Lymphatic: Denies easy bleeding, easy bruising or lymphadenopathy Allergic/Immunologic Allergic/Immunologic: Denies itchy eyes, lip swelling, seasonal rhinorrhea, rhinitis, throat swelling, tongue swelling, eczemia, wheezing or asthma Vital Signs Vital Signs Vital Signs: 11/16/21 23:17 11/16/21 23:17 11/16/21 23:19 Temperature Temperature Source Pulse Rate 84 81 Blood Pressure BP Systolic BP Diastolic Pulse Ox 97 11/16/21 23:19 11/16/21 23:21 11/16/21 23:21 Temperature Temperature Source Pulse Rate 82 Blood Pressure 107/56 L BP Systolic 107 BP Diastolic 56 Pulse Ox 94 11/16/21 23:27 11/16/21 23:27 11/16/21 23:27 Temperature 98.2 F 98.3 F Temperature Source Temporal Pulse Rate Blood Pressure BP Systolic BP Diastolic Pulse Ox 11/16/21 23:21 11/16/21 23:21 Temperature 98.3 F Temperature Source Temporal Pulse Rate Blood Pressure BP Systolic BP Diastolic Pulse Ox Weight Weight: 149 lb 11.102 oz Body Mass Index (BMI) 24.1 Physical Exam Const alert, oriented x3, no apparent distress and healthy appearing General Appearance: cooperative; Negative for anxious HEENT normocephalic Face and Sinus: normal facial exam Eyes EOMs intact bilaterally and no scleral icterus General Eye: normal appearance of both eyes Neck full ROM and supple Lymph Lymphatic: no lymphadenopathy noted Chest Chest: abnormal inspection of the chest Resp normal respiratory effort Effort and Inspection: able to speak in complete sentences Cardio regular rate GI soft to palpation and non-tender Inspection: gravid Palpation: soft; Negative for tender external exam normal Manual OB Exam: other 4/80/-1 bulging membranes Amniotic Fluid: ROM+plus Back/Spine no CVA tenderness Extremity normal to inspection, full ROM and no clubbing, cyanosis or edema General Extremity: Negative for calf tenderness or edema Skin Lesions: no lesions Rashes: no rashes Psych mental status grossly normal Labs Labs Labs: Blood Type O POSITIVE Antibody Screen NEGATIVE Hct 34.6 % (37-47) L Hgb 11.8 g/dL (12.0-15.0) L Obstetrics US Syphilis Total Ab Non-reactive Rubella IgG Antibody Reactive (Nonreactive) Hep Bs Antigen Non-Reactive (Nonreactive) Chlamydia DNA (SUSAN) Negative (Negative-) Neisseria gonorrhoeae DNA (SUSAN) Negative (Negative-) HIV 1&2 Antibody Non-Reactive (Nonreactive) Glucose 1 Hr 50 gm 83 mg/dL (70-140) Rhogam given: No Miscellaneous Test COMMENT Assessment & Plan (1) Fundal height low for dates in third trimester: COMMENT: growth us ordered now, 11/12/21 measuring 35w4d, 18.2percentile,BLUE 16.48- pt heavy smoker. recommend delivery at 40 weeks and weekly nsts (2) Late care affecting in second trimester: COMMENT: had biometrics only on initial ultrasound at 21 weeks. nl anatomy and growth US (3) Smoking (tobacco) complicating , second trimester: (4) : QUALIFIERS: Weeks of gestation: 37 weeks Qualified Code(s): Z3A.37 - 37 weeks gestation of COMMENT: GBS neg. (5) Supervision of normal : COMMENT: FELECIA 12/01/21 SAMANTHA Horn: Walker (Jojo) (6) Family history of cleft lip and palate: COMMENT: FOB dtr with Cantrell Wells Syndrome. PLAN: Plan Patient presents IAL, plan expectant management for , pitocin/AROM PRN if needed. Pain management: plans epidural. GBS negative. Management of any complications: none I have reviewed the [facility] and made any clinically relevant updates.
[2021-11-17] MEDS: fentaNYL-bupivacaine (epidural) 100 ML BAG EPIDURAL (02:58)
[2021-11-17 03:04] LABS: Chlamydia Trachomatis by PCR Negative (Negative); Neisserai gonorrhoeae by PCR Negative (Negative); Probe Check PASS; Sample Adequacy Control PASS; Specimen Processing Control PASS
[2021-11-17] MEDS: Mag Hydrox/Al Hydrox/Simeth 30 ML UDC PO (03:41)
[2021-11-17] MEDS: Oxytocin 30 units/NS 500 ml 30 UNITS/500 ML IV.SOLN 334 UNITS IV (05:47)
--- NOTE | 2021-11-17 05:51 | OP.PCM_ITS ---
Assessment & Plan (1) Fundal height low for dates in third trimester: COMMENT: growth us ordered now, 11/12/21 measuring 35w4d, 18.2percentile,AF I 16.48- pt heavy smoker. recommend delivery at 40 weeks and weekly nsts (2) Late care affecting in second trimester: COMMENT: had biometrics only on initial ultrasound at 21 weeks. nl anatomy and growth US (3) Smoking (tobacco) complicating , second trimester: (4) : QUALIFIERS: Weeks of gestation: 37 weeks Qualified Code(s): Z3A.37 - 37 weeks gestation of COMMENT: GBS neg. (5) Supervision of normal : COMMENT: FELECIA 12/01/21 SAMANTHA Horn: Walker (Jojo) (6) Family history of cleft lip and palate: COMMENT: FOB dtr with Cantrell Wells Syndrome. Maternal Data Information FELECIA Calculator Estimated Delivery Date Method Current WG Current Estimate 12/01/21 Ultrasound #1 38w 0d Final FELECIA: 12/01/21 Final FELECIA Source: LMP Gestational age: 38w0d Vaginal Delivery Maternal Presentation Maternal Presentation: Active Labor Type of Induction: Amniotomy Operative Information Date of Procedure: 11/17/21 Pre-Operative Diagnosis: @ 38 weeks 0d , active labor Post-Operative Diagnosis: @ 38 weeks 0d , active labor Surgery / Procedure Performed: Spontaneous Vaginal Delivery Type of Anesthesia: Epidural Drain: Rosa to straight drain Estimated Blood Loss: 100cc Findings Description of Procedure: Patient began pushing and delivered the head in the LINDA presentation. The head was delivered atraumatically . The anterior and posterior shoulders delivered without complication followed by the rest of the infant and the infant was placed on the maternal abdomen. Delayed cord clamping was employed for approximately 60 seconds. Cord was clamped and cut and gentle traction was applied to the cord and the placenta delivered spontaneously immediately following it was noted to be intact with three-vessel cord. The perineum and vagina were inspected and noted to have no laceration. EBL was 100 cc. Patient and infant tolerated delivery well. Presentation: Vertex Amniotic Membrane Rupture Type: Artificial Time of Membrane Rupture: 2:00 Amniotic Fluid Description: Clear Placental Delivery Description: Spontaneous Placenta Disposition: [facility] Cord Vessel Description: 3 Vessels Cord Entanglement: None Nuchal Cord Compression: Without compression A Gender: Female (1 minute): 8 (5 minute): 9 Delayed Cord Clamping: Yes Post Vaginal Delivery Medications Given After Delivery: IV Pitocin Episiotomy Description: None Laceration: None Complication Complications: None Multi Select Codes Urinary/Genital Urinary/Genital CPT Codes: 68674 Vaginal Delivery+ PP Care([facility])
--- NOTE | 2021-11-17 06:01 | DCINST_ITS ---
Discharge Instructions Diet Discharge Diet: No restrictions Activity Discharge Activity: Return to Normal Activity, May Not Drive (while taking narcotic pain medications.) and May Shower May resume sexual activity in: 4-6 weeks Dressing / Incision Call your doctor if your incision/area has: Continuous Slow Oozing, Sudden Increased Bleeding, Increased Pain/ Swelling, Increased Redness and Foul Smelling Discharge Follow Up Care Please Follow Up With: Hilda Villalta, When: Call [phone] to make an appointment with your doctor in 6 weeks. If you had elevated blood pressure or 4th degree laceration, you will need to be seen in 2 weeks. Test Results: Test results from this visit will be discussed in further detail at your follow- up appointment, if applicable. Discharge Plan Admission Admit Date/Time: 11/17/21 01:20 Primary Reason for Your Visit: vaginal delivery Attending Provider: Hilda Villalta Primary Care Provider: Lynn Harrison Primary Discharge Orders/Prescriptions Prescriptions: No Action PNV cmb#95-ferrous fumarate-FA 1 EACH tablet 1 tab PO DAILY Referrals / Follow Up: Care Physician,No Primary [Primary Care Provider] - Disposition Disposition (needs filled in before D/C Order can be placed): Home, Self Care
[2021-11-18 00:27] VITALS: BP 108/64; PULSE 75; RESP 18
[2021-11-18 04:18] VITALS: BP 109/54; PULSE 74; RESP 18
--- NOTE | 2021-11-18 07:53 | PCM.PN.OB ---
Subjective Subjective Patient doing well without complaints. Tolerating PO. Ambulating and voiding without difficulty. Feeding well. Denies chest pain, shortness of breath, calf pain/swelling, fevers, chills, lightheadedness. Objective Data Objective Data Vital Signs: Vital Signs Temp Pulse Resp BP Pulse Ox O2 Del Method 98.6 F 74 18 109/54 L 96 Room Air 11/17/21 20:27 11/18/21 04:18 11/18/21 04:18 11/18/21 04:18 11/17/21 17:01 11/18/21 04:18 Oxygen Delivery Method Room Air Weight: 149 lb 11.102 oz Body Mass Index (BMI) 24.1 Intake & Output: Intake and Output for Last 24 Hours 11/16/21 11/17/21 11/18/21 23:59 23:59 23:59 Intake Total 1977.34 / Output Total 900 / 900 Balance 1078.34 / 1078.34 Lab / Micro Data Result Diagrams: 11/17/21 01:50 Micro: Microbiology 11/17/21 01:55 Nasal Secretion SARS-CoV-2 Antigen (Rapid) - Final ROS Constitutional Constitutional: Denies chills, fatigue, fever(s), poor appetite or weakness Eyes Eyes: Denies blurry vision, change in vision, seeing flashes or spots in vision ENT HEENT: Denies dizziness, headache(s), loss taste/smell or sore throat Cardiovascular Cardiovascular: Denies chest pain, dizziness, dyspnea, irregular heart rhythm, palpitations or rapid heart rate Respiratory/Chest Respiratory/Chest: Denies chest tightness, cough, dyspnea or breast pain Gastrointestinal Gastrointestinal: Denies abdominal pain, constipation or vomiting Genitourinary Genitourinary: Denies dysuria or flank pain Musculoskeletal Musculoskeletal: Denies difficulty walking, joint pain, limited range of motion or numbness Neurologic Neurologic: Denies abnormal movements, abnormal speech, dizziness, numbness, seizure-like activity or syncope Psychiatric Psychiatric: Denies anxiety, behavioral changes, change in appetite, confusion, depression or suicidal thoughts Physical Exam Const alert, oriented x3 and no apparent distress General Appearance: cooperative and comfortable Resp normal respiratory effort Cardio regular rate GI normal to inspection, nondistended, normoactive bowel sounds GI Narrative: uterus is firm below umbilicus Palpation: soft Back/Spine no CVA tenderness and thoraco-lumbar ROM normal Extremity normal to inspection, no clubbing, cyanosis or edema, no calf tenderness and no pedal edema Psych mental status grossly normal, thought process normal, cooperative, affect normal, speech normal, activity/motor behavior normal, denies homicidal ideation and denies suicidal ideation Assessment & Plan (1) Status post vaginal delivery: COMMENT: ya MUÑOZ 11/17/21 PLAN: s/p PPD # 1 1. routine post delivery care 2. breast feeding- support given 3. rh positive 4. rubella immune 5. dc to home today
[2021-11-18 08:04] VITALS: BP 106/57; PULSE 73; RESP 16; TEMP 37.1
--- NOTE | 2021-11-18 12:10 | NURSING ---
Reviewed and agreed with Jack BARRON charting.
== END 2021-11-18 12:20 | disposition home or self-care (01) | DRG 560 ==
LOC: WPOUT 01:25 → WP 01:25
PROVIDERS: Admitting Provider Obstetrics & Gynecology; Visit Provider Obstetrics & Gynecology
DX: O26.843 Uterine size-date discrepancy, third trimester (principal); Z37.0 Single live birth; F17.200 Nicotine dependence, unspecified, uncomplicated; O99.334 Smoking (tobacco) complicating childbirth; Z28.310 Unvaccinated for COVID-19; Z28.9 Immunization not carried out for unspecified reason; Z3A.38 38 weeks gestation of pregnancy; Z87.59 Personal history of other complications of pregnancy, childbirth and the puerperium
CPT/HCPCS: 59025; 59050; 80307; 81001; 84112; 85025; 86850; 86900; 86901; 87426; 87491; 87591; 99218; 99406; J7120; G0378

== ENCOUNTER 2023-02-03 09:31 | Day surgery (SDC) | payer MEDICAID, SELFPAY ==
--- NOTE | 2023-02-02 17:36 | HP.PCM.OB_ITS ---
History and Physical Date of Admission: 02/03/23 Pre-Op History and Physical ? HPI: The patient is a 27 year old female presenting for pre-operative visit. She is scheduled for laparscopic bilateral salpingectomy, for desires sterilization on 02/03/23. Procedure discussed along with risks, benefits and complications. Other alternatives discussed for management. Consent form signed? Yes. ? ? PAST MEDICAL HISTORY PAST MEDICAL HISTORY Diagnosis Date ? Adult ADHD 05/05/2022 ? Chlamydia ? ? ? PAST SURGICAL HISTORY No past surgical history on file. ? ? CURRENT MEDICATIONS Current Outpatient Medications Medication Sig Dispense Refill ? amphetamine-dextroamphetamine XR (ADDERALL XR) 20 mg capsule Take 1 capsule by mouth once daily for 30 days. Do not start before January 14, 2023. 30 capsule 0 ? [START ON 01/22/2023] dextroamphetamine-amphetamine (ADDERALL) 10 mg tablet Take 1 tablet by mouth once daily for 30 days. Do not start before January 22, 2023. 30 tablet 0 ? No current facility-administered medications for this visit. ? ? ALLERGIES: Patient has no known allergies. ? PERSONAL HISTORY: SOCIAL HISTORY Social History ? Tobacco Use ? Smoking status: Every Day ? ? Packs/day: .25 ? ? Types: Cigarettes ? Smokeless tobacco: Never Vaping Use ? Vaping Use: Never used Substance Use Topics ? Alcohol use: No ? Drug use: Not Currently ? ? Types: Marijuana ? FAMILY HISTORY: FAMILY HISTORY No family history on file. ? REVIEW OF SYMPTOMS: negative except as noted above PHYSICAL EXAMINATION: ? VITALS: Blood pressure 100/60, weight 125 lb (56.7 kg), last menstrual period 01/11/2023, not currently . ? GENERAL: The patient is well nourished, well hydrated in no acute distress. , The patient is oriented to time, place, and person. NECK: Supple. No lynphadenopathy, normal thyroid, no thyromegaly. LUNGS: Clear to auscultation bilaterally. no wheezes, rhonchi or rales HEART: Regular rate and rhythm, Normal heart sounds, and No murmurs or gallops ? IMPRESSION: 27yo desires permanent sterilization ? PLAN: laparoscopic bilateral salpingectomy ? Pt has been counseled on risks/benefits and alternatives of surgery including but not limited to anesthesia, bleeding, infection, injury to pelvic structures including bowel, bladder, ureters and vessels. Pt wishes to proceed with andrade venancio at this time. Risk of regret reviewed. Title 19 previously signed. ? Pre and post op instructions reviewed ? I have reviewed and updated past medical and surgical history, medications and allergies Kamryn Cooper MD ?4:45 PM Office Visit on 01/18/2023 Office Visit on 01/18/2023 Note shared with patient
[2023-02-03] MEDS: Lactated Ringers 1,000 ML 15 ML IV (10:04)
[2023-02-03 10:05] VITALS: BP 114/70; PULSE 88; RESP 18; TEMP 36.9; O2SAT 99; BMI 20.5
[2023-02-03 10:18] LABS: Hematocrit 40.7 % (37-47); Hemoglobin 13.7 g/dL (12.0-15.0); Mean Corp Hgb Conc 33.7 g/dL (32-36); Mean Corpuscular Hgb 30.4 pg (27.0-32.0); Mean Corpuscular Volume 90.2 fL (81-99); Mean Platelet Vol. 9.9 fl (6.2-12.0); Platelet Count 328 K/mm3 (150-450); RBC Distribution Width CV 13.2 % (11.6-14.6); RBC Distribution Width SD 43.8 fl (35.1-43.9); Red Blood Count 4.51 M/mm3 (4.2-5.4); White Blood Count 7.8 K/mm3 (4.4-11.0)
[2023-02-03 10:19] LABS: Internal QC Validated? YES +Cl - CLEAR BKGD; Pregnancy, Urine Negative Negative; Record Kit Lot#,Urine Preg 667200
--- NOTE | 2023-02-03 11:40 | FALS_PTH ---
PATIENT: IRAM BETANCOURT LOC[place] [facility] [place][id number] AGE/SX: 27/F ROOM: RE02/03/[address]: Dr. Kamryn Shotr, MDDOB: 1995 BED: DIS: 02/03/2023 SPEC #: [id number] RECD: 02/03/23 18:12 STATUS: MAILE KRISTINA #: [id number] KEILY: 02/03/23 11:[address]: Kamryn Short DEPT: SURGICAL PATHOLOGY RECD BY: Carlos Sam ENTERED: 02/06/23 10:56 SP TYPE: FALL TUBES OTHR DR: No Primary Care Phys Tissues: Fallopian tube Procedures: Surgery Specimen Level II HEADER OPERATION: Laparoscopic salpingectomy PRE-OP DIAGNOSIS: Sterilization TISSUE SUBMITTED: Bilateral fallopian tubes MICROSCOPIC DIAGNOSIS Right and left fallopian tubes, bilateral salpingectomies: Complete cross-sections of fallopian tubes with no pathologic change. AM:vincent 02/07/2023 MICROSCOPIC DESCRIPTION Slides are reviewed. GROSS DESCRIPTION Received in fixative is one container labeled with the patient's name and designated bilateral fallopian tubes. The specimen consists of bilateral fallopian tubes including fimbrial ends measuring 4.5 cm in length and 0.7 cm in diameter and 6.0 cm in length and 0.8 cm in diameter. The fallopian tubes are not identified as right or left. Sections reveal unremarkable cut surfaces. Welder Fabricator sections are submitted in two cassettes with each cassette containing one fallopian tube. / LEONEL:vincent 02/06/2023 TC:4 CPT: 36041 x2
--- NOTE | 2023-02-03 13:10 | OP.PCM_ITS ---
Report of Operation Date of Procedure: 02/03/23 Pre-Operative Diagnosis: desires sterilization Post-Operative Diagnosis: same Surgery/Procedure Performed:: laparoscopic bilateral salpingectomy Description of Surgical Findings:: normal tubes and ovaries. Surgeon: Kamryn Short project/production manager imaging: Heidi Lemons Type of Anesthesia: General and Local Special Medications: 0.5% marcaine Specimen's removed: bilateral fallopian tubes Drains: none Estimated Blood Loss (mL): <5cc Fluids Replaced: 1000cc Description of Procedure: After informed consent was obtained patient was taken to the operating room she was placed in supine position she was given anesthesia. She was then placed in the [facility] and she was prepped and draped in normal sterile fashion. Bladder was drained prior to the start of procedure. At this time attention was turned to the vaginal portion where weighted speculum placed at posterior fornix vagina single-tooth tenaculum was used to gently grasp the internal the cervix. uterus was gently sounded to approximately 8 cm. Uterine manipulator was placed without difficulty. Legs then placed in parallel with the abdomen the tenaculum and the weighted speculum were removed. 2 towel clamps were placed at level of umbilicus. Marcaine was injected infraumbilical and a small incision was made. The 5 mm trocar was placed under direct visualization. CO2 gas was used to insufflate the intra-abdominal cavity. Upon inspection no gross abnormalities appreciated- the uterus tubes and ovaries appeared to be normal. At this time then the LLQ and RLQ ports were placed First Marcaine was injected and small incision was made a knife and the 5 mm trocars were placed. At this time then tubes were traced back to the fimbriated ends. Enseal was used to coagulate and ligate along mesosalpinx bilaterally until tubes removed completely. Good hemostasis was appreciated. At this time procedure was deemed complete successful. The gas was desufflated on from the intra-abdominal cavity. The trochars were removed. Skin was closed using 4-0 Monocryl in a subcutaneous fashion. Dermabond glue was placed. Instrument lap and needle counts were correct ?2. The uterine manipulator was removed. Vaginal sweep was performed it was negative. There were no complications anticipated normal postoperative course for this patient. Dr. Lemons assisted with manipulation of the camera for the procedure Grafts/Implants Used: none Procedure Start Time: 13:27 Procedure Stop Time: 13:42 Complications none Admit VTE Documentation VTE Present on Admission: Yes VTE Mechan Device Prophylaxis: SCD's VTE Pharm Prophylaxis ordered?: No Reason prophylaxis not ordered:: Procedure Not Indicated
--- NOTE | 2023-02-03 13:10 | DCINST_ITS ---
Discharge Instructions Diet Discharge Diet: No restrictions Activity May resume sexual activity in: 2 weeks Lifting Restrictions: 20-25 lbs Dressing / Incision Call your doctor if your incision/area has: Continuous Slow Oozing, Sudden Increased Bleeding, Increased Pain/ Swelling, Increased Redness, Foul Smelling Discharge and Swelling at the incision site Call your doctor if you observe: Fever of 101 or Higher, Inability to urinate, Inability to have a bowel movement, Using more than 1 pad per hour and Uncontrolled pain Additional Dressing/Incision Instructions:: You have skin glue over your incision sites, do not pick off. You may shower and let the soap and water run over the incision sites and dab dry. Follow Up Care Please Follow Up With: Kamryn Short MD When: 1-2 weeks post OP if you need an appointment please call [phone] Test Results: Test results from this visit will be discussed in further detail at your follow- up appointment, if applicable. Discharge Plan Admission Attending Provider: Kamryn Short Primary Care Provider: Care PhysicianLynn Primary Discharge Orders/Prescriptions Prescriptions: No Action dextroamphetamine-amphetamine 10 mg tablet 10 mg PO DAILY Patient Comments: take 1 tablet by mouth once daily Referrals / Follow Up: Care PhysicianLynn Primary [Primary Care Provider] - Disposition Disposition (needs filled in before D/C Order can be placed): Home, Self Care
[2023-02-03] MEDS: Bupivacaine 0.5% PF 10 ML VIAL (13:41)
[2023-02-03 14:04] VITALS: BP 114/70; BP 97/54; PULSE 98; RESP 16; TEMP 36.1; O2SAT 100
[2023-02-03 14:15] VITALS: BP 114/70; BP 121/86; PULSE 93; RESP 16; O2SAT 99
[2023-02-03 14:26] VITALS: BP 114/70; BP 131/79; PULSE 89; RESP 16; TEMP 36.7; O2SAT 99
[2023-02-03 14:51] VITALS: BP 114/70
== END 2023-02-03 14:54 | disposition home or self-care (01) ==
LOC: SDC 09:32 → AC 09:41
PROVIDERS: Referring Provider Obstetrics & Gynecology; Visit Provider Obstetrics & Gynecology
PROC: (CPT 58661; principal; 2023-02-03 11:25)
DX: Z30.2 Encounter for sterilization (principal); F90.9 Attention-deficit hyperactivity disorder, unspecified type; F17.210 Nicotine dependence, cigarettes, uncomplicated; Z79.899 Other long term (current) drug therapy
CPT/HCPCS: 58661; 00840; 81025; 85027; 88302; J7120; C1760; J2405